=== PATIENT | male | born 1960 | race Caucasian/White ===

== ENCOUNTER 2018-03-10 12:20 | Observation (INO) | payer OTHER ==
[2018-03-10 13:12] LABS: Absolute Lymphocytes (CBC) 1.5 K/uL (0.7-4.9); Absolute Monocytes 0.6 K/uL (0.1-1.3); Absolute Neutrophil 5.2 K/uL (1.8-8.0); Basophils % 0.6 % (0-1.3); Eosinophils % 0.7 % (0-4.4); Hematocrit 51.3 % (39.6-49.0); Lymphocytes % 20.8 % (15.3-44.8); MCH 28.9 pg (27.0-35.0); MCV 85.8 fL (80-100); MPV 9.8 fL (7.6-11.3); Monocytes % 8.1 % (3.3-12.3); RBC Red Blood Cell Count 5.98 M/uL (4.33-5.43)
[2018-03-10] MEDS ORDERED: METOPROLOL TARTRATE 5 MG/5 ML INJ IV ONE ×2 (13:15→13:29)
[2018-03-10] MEDS ORDERED: ASPIRIN 81 MG CHEWABLE TABLET ONE (13:15)
[2018-03-10 13:21] LABS: Protime INR 1.05
[2018-03-10 13:36] LABS: ALT/SGPT 22 U/L (12-78); AST/SGOT 18 U/L (15-37); Alkaline Phosphatase 82 U/L (45-117); BUN Blood Urea Nitrogen 18 mg/dL (7-18); Bicarbonate 29 mmol/L (21-32); Bilirubin Direct 0.2 mg/dL (0-0.2); Bilirubin Total 0.9 mg/dL (0.2-1.0); CKMB Creatine Kinase MB < 1.0 ng/mL (0.3-3.6); Creatine Phosphokinase 57 U/L (39-308); Glucose Level 95 mg/dL (74-106); Magnesium 2.1 mg/dL (1.8-2.4); NT PRO-BNP 62 pg/mL (<125); Potassium 3.8 mmol/L (3.5-5.1); Protein, Total 7.8 g/dL (6.4-8.2); Sodium Level 140 mmol/L (136-145); Troponin (Emerg Dept Use Only) < 0.02 ng/mL (0.0-0.045)
--- NOTE | 2018-03-10 14:10 | RAD REPORT ---
EXAM DESCRIPTION: CT - Head Brain Wo Cont - 03/10/2018 1:56 pm CLINICAL HISTORY: Dizziness COMPARISON: None. TECHNIQUE: Computed axial tomography of the head was obtained. IV contrast was not requested. All CT scans are performed using dose optimization technique as appropriate and may include automated exposure control or mA/KV adjustment according to patient size. FINDINGS: An intracranial bleed is not seen . The ventricles are normal in caliber. No extra-axial fluid collection is noted. Fluid within the sinuses/ mastoids is not seen. IMPRESSION: No acute intracranial abnormality is seen. If patient's symptoms persist MRI of the bra in would be recommended.
--- NOTE | 2018-03-10 14:24 | RAD REPORT ---
EXAM DESCRIPTION: Flory Single View03/10/2018 1:26 pm CLINICAL HISTORY: Chest pain COMPARISON: none FINDINGS: The lungs appear clear of acute infiltrate. The heart is mildly enlarged. The aorta is to rtuous/ectatic IMPRESSION: No acute abnormalities displayed
[2018-03-10] MEDS ORDERED: cloNIDine HCl 0.1 MG TAB ONE (14:32)
[2018-03-10 15:18] LABS: Urine Blood NEGATIVE (NEG); Urine Glucose NEGATIVE (NEG); Urine Protein NEGATIVE (NEG); Urine pH 6.5 (5.0-7.0)
--- NOTE | 2018-03-10 15:35 | EDPHYS ---
Physician Documentation [facility] Name: Yoshi Mcadams Age: 57 yrs Sex: Male : 1960 Arrival Date: 03/10/2018 Time: 12:27 Bed 15 Private MD: ED Physician Salvatore Joseph HPI: 03/10 13:27 This 57 yrs old Male presents to ER via EMS with complaints of High Blood Pressure. kb 13:28 The patient presents with dizziness, feeling "weird". Onset: The symptoms/episode kb began/occurred just prior to arrival. Context: occurred at work, occurred while the patient was working, just prior to the episode the patient experienced no apparent symptoms. Modifying factors: The symptoms are alleviated by nothing, the symptoms are aggravated by nothing. Associated signs and symptoms: The patient has no apparent associated signs or symptoms. Severity of symptoms: At their worst the symptoms were moderate in the emergency department the symptoms are unchanged. Patient's baseline: Neuro: alert and fully oriented, Motor: no deficits, Ambulation: walks without assistance, Speech: normal. The patient has not experienced similar symptoms in the past. The patient has not recently seen a physician. Historical: - Allergies: 12:31 No Known Allergies; em - PMHx: 12:31 Hypertension; em - PSHx: 12:31 Hernia repair; Tonsillectomy; em - Immunization history:: Adult Immunizations up to date. - Social history:: Smoking status: Patient/guardian denies using tobacco. - Ebola Screening: : Patient negative for fever greater than or equal to 101.5 degrees Fahrenheit, and additional compatible Ebola Virus Disease symptoms Patient denies exposure to infectious person Patient denies travel to an Ebola-affected area in the 21 days before illness onset No symptoms or risks identified at this time. ROS: 13:28 Constitutional: Negative for fever, chills, and weight loss, Cardiovascular: Negative kb for chest pain, palpitations, and edema, Respiratory: Negative for shortness of breath, cough, wheezing, and pleuritic chest pain, Abdomen/GI: Negative for abdominal pain, nausea, vomiting, diarrhea, and constipation, Back: Negative for injury and pain, : Negative for injury, bleeding, discharge, and swelling, MS/Extremity: Negative for injury and deformity, Skin: Negative for injury, rash, and discoloration. 13:28 Neuro: Positive for "I just felt weird, not quite right.". Exam: 13:28 Constitutional: This is a well developed, well nourished patient who is awake, alert, kb and in no acute distress. Head/Face: Normocephalic, atraumatic. Eyes: Pupils equal round and reactive to light, extra-ocular motions intact. Lids and lashes normal. Conjunctiva and sclera are non-icteric and not injected. Cornea within normal limits. Periorbital areas with no swelling, redness, or edema. ENT: Nares patent. No nasal discharge, no septal abnormalities noted. Tympanic membranes are normal and external auditory canals are clear. Oropharynx with no redness, swelling, or masses, exudates, or evidence of obstruction, uvula midline. Mucous membranes moist. Neck: Trachea midline, no thyromegaly or masses palpated, and no cervical lymphadenopathy. Supple, full range of motion without nuchal rigidity, or vertebral point tenderness. No Meningismus. Chest/axilla: Normal chest wall appearance and motion. Nontender with no deformity. No lesions are appreciated. Cardiovascular: Regular rate and rhythm with a normal S1 and S2. No gallops, murmurs, or rubs. Normal PMI, no JVD. No pulse deficits. Respiratory: Lungs have equal breath sounds bilaterally, clear to auscultation and percussion. No rales, rhonchi or wheezes noted. No increased work of breathing, no retractions or nasal flaring. Abdomen/GI: Soft, non-tender, with normal bowel sounds. No distension or tympany. No guarding or rebound. No evidence of tenderness throughout. Back: No spinal tenderness. No costovertebral tenderness. Full range of motion. Skin: Warm, dry with normal turgor. Normal color with no rashes, no lesions, and no evidence of cellulitis. MS/ Extremity: Pulses equal, no cyanosis. Neurovascular intact. Full, normal range of motion. Neuro: Awake and alert, GCS 15, oriented to person, place, time, and situation. Cranial nerves II-XII grossly intact. Motor strength 5/5 in all extremities. Sensory grossly intact. Cerebellar exam normal. Normal gait. Vital Signs: 12:31 BP 152 / 121; Pulse 93; Resp 18; Pulse Ox 98% on R/A; Weight 88.45 kg; Height 5 ft. 9 em in. (175.26 cm); Pain 0/10; 13:10 BP 172 / 120 RA (man/); Pulse 100; iw 13:21 BP 168 / 111; Pulse 79; Resp 16; iw 13:33 BP 157 / 116; Pulse 71; iw 14:15 BP 166 / 115; Pulse 79; Resp 18; Pulse Ox 99% on R/A; Pain 0/10; em 15:00 BP 178 / 107; Pulse 82; Resp 18; Temp 98.8(O); Pulse Ox 98% on R/A; Pain 0/10; em 15:51 BP 139 / 104; Pulse 87; Resp 18; Pulse Ox 98% on R/A; Pain 0/10; em 17:27 BP 122 / 89; Pulse 75; Resp 16; Pulse Ox 99% on R/A; Pain 0/10; em 12:31 Body Mass Index 28.80 (88.45 kg, 175.26 cm) em MDM: 12:43 Patient medically screened. kb 13:28 Data reviewed: vital signs, nurses notes. Data interpreted: Pulse oximetry: on room air kb is 98 %. Interpretation: normal. 15:31 Counseling: I had a detailed discussion with the patient and/or guardian regarding: the kb historical points, exam findings, and any diagnostic results supporting the discharge/admit diagnosis, lab results, radiology results, the need for further work-up and treatment in the hospital. Physician consultation: Rosa Guerra MD was contacted at 15:32, regarding admission, to the telemetry unit. patient's condition, and will see patient in ED, shortly. 03/10 12:43 Order name: Basic Metabolic Panel; Complete Time: 13:37 kb 03/10 12:43 Order name: CBC with Diff; Complete Time: 13:22 kb 03/10 12:43 Order name: Ckmb; Complete Time: 13:37 kb 03/10 12:43 Order name: CPK; Complete Time: 13:37 kb 03/10 12:43 Order name: LFT's; Complete Time: 13:37 kb 03/10 12:43 Order name: Magnesium; Complete Time: 13:37 kb 03/10 12:43 Order name: NT PRO-BNP; Complete Time: 13:37 kb 03/10 12:43 Order name: PT-INR; Complete Time: 13:26 kb 03/10 12:43 Order name: Ptt, Activated; Complete Time: 13:26 kb 03/10 12:43 Order name: Troponin (emerg Dept Use Only); Complete Time: 13:37 kb 03/10 12:43 Order name: XRAY Chest (1 view); Complete Time: 14:25 kb 03/10 13:37 Order name: CT Head Brain wo Cont; Complete Time: 14:12 kb 03/10 14:43 Order name: Urine Dipstick--Ancillary (enter results); Complete Time: 15:25 em1 03/10 15:27 Order name: MRI Stroke Protocol kb 03/10 12:43 Order name: EKG; Complete Time: 12:44 kb 03/10 12:43 Order name: Cardiac monitoring; Complete Time: 12:54 kb 03/10 12:43 Order name: EKG - Nurse/Tech; Complete Time: 12:54 kb 03/10 12:43 Order name: IV Saline Lock; Complete Time: 12:54 kb 03/10 12:43 Order name: Labs collected and sent; Complete Time: 12:54 kb 03/10 12:43 Order name: O2 Per Protocol; Complete Time: 12:54 kb 03/10 12:43 Order name: O2 Sat Monitoring; Complete Time: 12:55 kb 03/10 12:43 Order name: Urine Dipstick-Ancillary (obtain specimen); Complete Time: 14:36 kb 03/10 15:39 Order name: EEG Request EDMS Administered Medications: 13:15 Drug: Lopressor 5 mg Route: IVP; Site: left antecubital; iw 13:20 Drug: Aspirin Chewable Tablet 324 mg Route: PO; iw 14:45 Follow up: Response: No adverse reaction em 13:27 Drug: Lopressor 5 mg Route: IVP; Site: left antecubital; iw 13:32 Drug: Lopressor 5 mg Route: IVP; Site: left antecubital; iw 14:45 Follow up: Response: No adverse reaction; Blood pressure is unchanged em 14:40 Drug: cloNIDine 0.2 mg Route: PO; em 15:58 Follow up: Response: No adverse reaction; Blood pressure is lowered em 16:22 Drug: Ativan 1 mg Route: IVP; Site: left antecubital; fc 17:27 Follow up: Response: No adverse reaction; Marked relief of symptoms em Disposition: 18:18 Co-signature as Attending Physician, Salvatore Joseph MD I agree with the assessment and kdr plan of care. Disposition: 03/10/18 15:35 Hospitalization ordered by Rosa Guerra for Observation. Preliminary diagnosis are Dizziness and giddiness, Essential (primary) hypertension. - Bed requested for Telemetry/MedSurg (observation). - Status is Observation. em - Condition is Stable. - Problem is new. - Symptoms are unchanged. UTI on Admission? No Signatures: Dispatcher [employer] EDMS Addie Manuel, TIER IN-C TIER IN-Salvatore Bryant MD MD kdr Linda Lehman, RN RN fc Ramírez Lowry, DESK ASSISTANT DESK ASSISTANT em Michelle Nuñez RN RN iw Botello, Elizabeth eb Corrections: (The following items were deleted from the chart) 16:03 15:35 Hospitalization Ordered by Rosa Guerra MD for Observation. Preliminary eb diagnosis is Dizziness and giddiness; Essential (primary) hypertension. Bed requested for Telemetry/MedSurg (observation). Status is Observation. Condition is Stable. Problem is new. Symptoms are unchanged. UTI on Admission? No. kb 16:21 16:03 03/10/2018 15:35 Hospitalization Ordered by Rosa Guerra MD for Observation. eb Preliminary diagnosis is Dizziness and giddiness; Essential (primary) hypertension. Bed requested for Telemetry/MedSurg (observation). Status is Observation. Condition is Stable. Problem is new. Symptoms are unchanged. UTI on Admission? No. eb 17:30 16:21 03/10/2018 15:35 Hospitalization Ordered by Rosa Guerra MD for Observation. em Preliminary diagnosis is Dizziness and giddiness; Essential (primary) hypertension. Bed requested for Telemetry/MedSurg (observation). Status is Observation. Condition is Stable. Problem is new. Symptoms are unchanged. UTI on Admission? No. eb
--- NOTE | 2018-03-10 15:35 | ER ---
Nurse's Notes [facility] Name: Yoshi Mcadams Age: 57 yrs Sex: Male : 1960 Arrival Date: 03/10/2018 Time: 12:27 Bed 15 Private MD: Diagnosis: Dizziness and giddiness;Essential (primary) hypertension Presentation: 03/10 12:27 Presenting complaint: EMS states: c/o for HTN, pt did not take medication this morning em and became hot/cold and broke into sweat, denies CP, nausea, dizziness, or pain. BP per EMS 160/120s, HR 100-105. Transition of care: patient was not received from another setting of care. Onset of symptoms was March 10, 2018. Risk Assessment: Do you want to hurt yourself or someone else? Patient reports no desire to harm self or others. Initial Sepsis Screen: Does the patient meet any 2 criteria? No. Patient's initial sepsis screen is negative. Does the patient have a suspected source of infection? No. Patient's initial sepsis screen is negative. Care prior to arrival: None. 12:27 Method Of Arrival: EMS: [facility] em 12:30 Acuity: ARNAV 3 iw Triage Assessment: 12:31 General: Appears in no apparent distress. comfortable, Behavior is calm, cooperative. em Pain: Denies pain. Historical: - Allergies: 12:31 No Known Allergies; em - PMHx: 12:31 Hypertension; em - PSHx: 12:31 Hernia repair; Tonsillectomy; em - Immunization history:: Adult Immunizations up to date. - Social history:: Smoking status: Patient/guardian denies using tobacco. - Ebola Screening: : Patient negative for fever greater than or equal to 101.5 degrees Fahrenheit, and additional compatible Ebola Virus Disease symptoms Patient denies exposure to infectious person Patient denies travel to an Ebola-affected area in the 21 days before illness onset No symptoms or risks identified at this time. Screenin:32 Abuse screen: Denies threats or abuse. Nutritional screening: No deficits noted. em Tuberculosis screening: No symptoms or risk factors identified. Fall Risk None identified. Assessment: 12:31 General: Appears in no apparent distress. comfortable, Behavior is calm, cooperative. iw Pain: Denies pain. Neuro: Level of Consciousness is awake, alert, obeys commands, Oriented to person, place, time, situation, Intervention Specialist are equal bilaterally Moves all extremities. Speech is normal, Reports dizziness. Cardiovascular: Denies chest pain, fatigue, palpitations, shortness of breath, Capillary refill < 3 seconds Patient's skin is warm and dry. Respiratory: Airway is patent Respiratory effort is even, unlabored. GI: Abdomen is flat, Patient currently denies nausea, vomiting. : No signs and/or symptoms were reported regarding the genitourinary system. EENT: No signs and/or symptoms were reported regarding the EENT system. Derm: Skin is intact, Skin is pink, warm \\T\\ dry. Musculoskeletal: Range of motion: intact in all extremities. 13:21 Reassessment: Patient appears in no apparent distress at this time. Patient and/or iw family updated on plan of care and expected duration. Pain level reassessed. Patient is alert, oriented x 3, equal unlabored respirations, skin warm/dry/pink. 14:23 Reassessment: Patient appears in no apparent distress at this time. Patient and/or em family updated on plan of care and expected duration. Pain level reassessed. Patient is alert, oriented x 3, equal unlabored respirations, skin warm/dry/pink. reports tingling and feels like bugs crawling on pt, denies chest pain, SOB, headache, double vision, provider notified. 15:07 Reassessment: Patient appears in no apparent distress at this time. Patient and/or em family updated on plan of care and expected duration. Pain level reassessed. Patient is alert, oriented x 3, equal unlabored respirations, skin warm/dry/pink. pt son reports episodes of talking fine one moment and then "spacing out", son reports this is not normal for pt, provider notified, MRI will be ordered. 15:55 Reassessment: pt wheeled to MRI via wheelchair. em 16:15 Reassessment: Pt very anxious about MRI. Discussed with Addie PAYAN and pt to get Ativan fc IVP. 17:20 Reassessment: Patient appears in no apparent distress at this time. Patient and/or em family updated on plan of care and expected duration. Pain level reassessed. Patient is alert, oriented x 3, equal unlabored respirations, skin warm/dry/pink. returned from MRI, pt will be transfer to the floor Patient states feeling better. Vital Signs: 12:31 BP 152 / 121; Pulse 93; Resp 18; Pulse Ox 98% on R/A; Weight 88.45 kg; Height 5 ft. 9 em in. (175.26 cm); Pain 0/10; 13:10 BP 172 / 120 RA (man/); Pulse 100; iw 13:21 BP 168 / 111; Pulse 79; Resp 16; iw 13:33 BP 157 / 116; Pulse 71; iw 14:15 BP 166 / 115; Pulse 79; Resp 18; Pulse Ox 99% on R/A; Pain 0/10; em 15:00 BP 178 / 107; Pulse 82; Resp 18; Temp 98.8(O); Pulse Ox 98% on R/A; Pain 0/10; em 15:51 BP 139 / 104; Pulse 87; Resp 18; Pulse Ox 98% on R/A; Pain 0/10; em 17:27 BP 122 / 89; Pulse 75; Resp 16; Pulse Ox 99% on R/A; Pain 0/10; em 12:31 Body Mass Index 28.80 (88.45 kg, 175.26 cm) em ED Course: 12:27 Patient arrived in ED. em 12:31 Arm band placed on. em 12:32 Patient has correct armband on for positive identification. Placed in gown. Bed in low em position. Call light in reach. Adult w/ patient. 12:32 Maintain EMS IV. Dressing intact. Good blood return noted. Site clean \\T\\ dry. Gauge \\T\\ em site: 20 LAC. 12:40 Triage completed. iw 12:42 EKG done, by tree and shrub technician. dt2 12:43 Addie Manuel FNP-C is PHCP. kb 12:43 Salvatore Joseph MD is Attending Physician. kb 12:50 Ramírez Lowry LVN is Primary Nurse. em 13:25 X-ray completed. Portable x-ray completed in exam room. Patient tolerated procedure mh1 well. 13:27 XRAY Chest (1 view) In Process Unspecified. EDMS 13:[address] mw3 13:56 CT Head Brain wo Cont In Process Unspecified. EDMS 15:34 Rosa Guerra MD is Hospitalizing Provider. kb 16:01 Patient moved to MRI via wheelchair. ka 17:13 MRI completed. Patient tolerated well. Patient moved back from MRI. ka 17:25 No provider procedures requiring assistance completed. Patient admitted, IV remains in em place. Administered Medications: 13:15 Drug: Lopressor 5 mg Route: IVP; Site: left antecubital; iw 13:20 Drug: Aspirin Chewable Tablet 324 mg Route: PO; iw 14:45 Follow up: Response: No adverse reaction em 13:27 Drug: Lopressor 5 mg Route: IVP; Site: left antecubital; iw 13:32 Drug: Lopressor 5 mg Route: IVP; Site: left antecubital; iw 14:45 Follow up: Response: No adverse reaction; Blood pressure is unchanged em 14:40 Drug: cloNIDine 0.2 mg Route: PO; em 15:58 Follow up: Response: No adverse reaction; Blood pressure is lowered em 16:22 Drug: Ativan 1 mg Route: IVP; Site: left antecubital; 17:27 Follow up: Response: No adverse reaction; Marked relief of symptoms em Outcome: 15:35 Decision to Hospitalize by Provider. kb 17:25 Admitted to Tele accompanied by tech, family with patient, via wheelchair, room 409, em with chart, Report called to STACY Gibbons 17:25 Condition: good 17:25 Instructed on the need for admit, Demonstrated understanding of instructions. 17:30 Patient left the ED. em Signatures: Dispatcher [employer] Addie Jamison, NURSING ADMIN-C NURSING ADMIN-Ckb Karolina Saez 1 Linda Lehman RN RN Ramírez Lowry, EMBROIDERY PATTERNMAKER EMBROIDERY PATTERNMAKER em Michelle Nuñez RN RN Mary Newell Danielle 2 Jillian Grant mw3
[2018-03-10] MEDS ORDERED: LORazepam 2 MG/ML VIAL ONE (16:20)
--- NOTE | 2018-03-10 17:37 | P.HP ---
Certification for Inpatient Patient admitted to: Observation With expected LOS: <2 Midnights Patient will require the following post-hospital care: None Practitioner: I am a practitioner with admitting privileges, knowledge of patient current condition, hospital course, and medical plan of care. Services: Services provided to patient in accordance with Admission requirements found in Title 42 Section 412.3 of the Code of Federal Regulations Patient History Date of Service: 03/10/18 Primary Care Provider: OOT Reason for admission: HTN urgency History of Present Illness: 57-year-old male with significant past medical history of high blood pressure presented to the ED complaining of having some dizziness that started this morning when he was at work. Patient stated that he became dizzy all of a sudden started having some fatigue and thus decided to come to the ER. Patient had similar episodes about 6 weeks ago per family member at bedside stated that he had dizziness also at that time but he thought he was his kidney stones and did resolve thus he did not come to the ER at that time. Patient at baseline does have high blood pressure, takes medications at home however has noticed that his blood pressure has been elevated recently he had has been stress a lot at work recently as well he works as a business development recruiter at a firm In the ER patient was found to have hypertensive urgency and dizziness and thus was referred over to admission and rule out CVA. Home medications list reviewed: Yes - Past Medical/Surgical History Has patient received pneumonia vaccine in the past: Yes Diabetic: No -: HTN Past Surgical History: Reviewed- Non-Contributory - Family History Family History: Reviewed- Non-Contributory - Social History Smoking Status: Never smoker Smoking therapy provided: No Patient receptive to therapy: No Alcohol use: No CD- Drugs: No Caffeine use: No Place of Residence: Home Review of Systems 10-point ROS is otherwise unremarkable Physical Examination - Physical Exam General: Alert, In no apparent distress HEENT: Atraumatic, PERRLA, Mucous membr. moist/pink, EOMI, Sclerae nonicteric Neck: Supple, 2+ carotid pulse no bruit, No LAD, Without JVD or thyroid abnormality Respiratory: Clear to auscultation bilaterally, Normal air movement Cardiovascular: Regular rate/rhythm, Normal S1 S2 Gastrointestinal: Normal bowel sounds, No tenderness Musculoskeletal: No tenderness Integumentary: No rashes Neurological: Normal gait, Normal speech, Normal strength at 5/5 x4 extr, Normal tone, Normal affect Lymphatics: No axilla or inguinal lymphadenopathy - Studies Laboratory Data (last 24 hrs) 03/10/18 13:00: PT 12.4, INR 1.05, APTT 30.3 03/10/18 13:00: WBC 7.4, Hgb 17.3, Hct 51.3 H, Plt Count 221 03/10/18 13:00: Sodium 140, Potassium 3.8, BUN 18, Creatinine 1.30, Glucose 95, Magnesium 2.1, Total Bilirubin 0.9, AST 18, ALT 22, Alkaline Phosphatase 82 Assessment and Plan - Problems (Diagnosis) (1) Hypertensive urgency Current Visit: Yes Status: Acute Plan: HTN urgency with Dizziness and Blurred vision -PRN meds for BP -Will restart home medication -Goal BP 160-90 -BP now is 120/80 (2) Dizziness Current Visit: Yes Status: Acute Plan: Dizziness and blurred vision -Concern for CVA -MRI/MRA pending at this time Discharge Plan: Home Plan to discharge in: 48 Hours - Advance Directives Does patient have a Living Will: No Does patient have a Durable POA for Healthcare: No - Code Status/Comfort Care Code Status Assessed: Yes Critical Care: No
[2018-03-10] MEDS ORDERED: ONDANSETRON 4 MG/2 ML VIAL IV PRN (17:39)
[2018-03-10] MEDS ORDERED: INSULIN -REGULAR HUMAN 50 UNIT/0.5 ML ML SQ SCH (17:39)
[2018-03-10] MEDS: NA CHLORIDE 0.9% 1,000 ML IV SCH ×2 (17:39→20:29)
[2018-03-10] MEDS ORDERED: ACETAMINOPHEN 500 MG TAB PO PRN (17:39)
--- NOTE | 2018-03-10 18:44 | RAD REPORT ---
EXAM DESCRIPTION: MRI - Brain W/Wo Cont - 03/10/2018 5:14 pm CLINICAL HISTORY: Hypertension, dizziness, weakness COMPARISON: None. TECHNIQUE: Sagittal and axial T1-weighted images were obtained. Axial PD/heavily T2-weighted and T2- FLAIR images were obtained along with axial DWI/ADC mapping sequences. Coronal heavily T2 weighted s equence obtained. Axial and coronal post-contrast T1-weighted images were also obtained. A ml Magne vist contrast following utilized. FINDINGS: No intracranial hemorrhage, mass or acute infarction. There is no edema or shift of midli ne structures. No extra-axial fluid collections. [place]-matter/white matter junction is preserved. Sig nal voids are seen as a normal finding in the major intracranial vessels. No atrophy or chronic ische romelia changes seen. No vasculitis or other suspicious finding. No sella or supra sella abnormality. Post-contrast images show normal enhancement. No dural thickening. Mastoid air cells and paranasal sinuses are clear. IMPRESSION: Negative contrast enhanced MRI of the Brain.
--- NOTE | 2018-03-10 18:44 | RAD REPORT ---
EXAM DESCRIPTION: MRI - MRA Head Wo Cont - 03/10/2018 5:13 pm CLINICAL HISTORY: Weakness, dizziness, stroke-like symptoms COMPARISON: None. TECHNIQUE: Axial and coronal 3D [id number] image acquisition was performed. 3D rotational images were generated with source and reconstruction images reviewed. Maximum intensity projection protocol utilized. FINDINGS: Major venous sinuses are patent. Venous sinus thrombosis is not suspected. No aneurysm or vascular malformation. No stenosis or measurable atherosclerotic change. No vasculitis or other focal or diffuse vascular finding. IMPRESSION: Negative MRA head examination.
--- NOTE | 2018-03-10 18:44 | RAD REPORT ---
EXAM DESCRIPTION: MRI - MRA Neck W/Wo Cont - 03/10/2018 5:14 pm CLINICAL HISTORY: Dizziness, weakness, hypertension, stroke-like symptoms COMPARISON: None. TECHNIQUE: Image acquisition obtained in coronal plane. 3D rotational images were generated with juana rce and reconstruction images reviewed. Maximum intensity projection protocol utilized. A 20 millilit er MultiHance contrast volume was utilized. FINDINGS: Aortic arch is 3 vessel configuration. The great vessel and vertebral artery origins are u nremarkable. No dissection, stenosis or other vascular abnormality. No vascular malformation or aneur ysm. Vertebral arteries are codominant. IMPRESSION: Negative contrast enhanced MRA neck examination.
[2018-03-10] MEDS ORDERED: ATORVASTATIN 40 MG TAB PO SCH (21:00)
[2018-03-11 05:48] LABS: Absolute Lymphocytes (CBC) 1.6 K/uL (0.7-4.9); Absolute Monocytes 0.6 K/uL (0.1-1.3); Absolute Neutrophil 3.6 K/uL (1.8-8.0); Basophils % 0.8 % (0-1.3); Eosinophils % 1.1 % (0-4.4); Hematocrit 44.6 % (39.6-49.0); Lymphocytes % 27.4 % (15.3-44.8); MCH 29.3 pg (27.0-35.0); Monocytes % 9.6 % (3.3-12.3); RBC Red Blood Cell Count 5.19 M/uL (4.33-5.43)
[2018-03-11 06:01] LABS: Albumin 3.1 g/dL (3.4-5.0); Bilirubin Total 0.5 mg/dL (0.2-1.0); Magnesium 2.1 mg/dL (1.8-2.4); Phosphorus 2.8 mg/dL (2.5-4.9); Potassium 3.8 mmol/L (3.5-5.1); Protein, Total 6.3 g/dL (6.4-8.2)
[2018-03-11] MEDS ORDERED: ASPIRIN 81 MG CHEWABLE TABLET PO SCH (09:00)
[2018-03-11] MEDS ORDERED: LOSARTAN POTASSIUM 50 MG TABLET PO SCH (09:00)
--- NOTE | 2018-03-11 09:50 | EKG ---
Test Date: 2018-03-10 Test Time: 12:37:13 Senior Laboratory Technician: ISAAK MEASUREMENT RESULTS: Intervals: Rate: 88 [place]: 166 QRSD: 94 QT: 344 QTc: 416 [place]: P: 41 [place]: 166 QRS: -1 T: 35 INTERPRETIVE STATEMENTS: Normal sinus rhythm with sinus arrhythmia Possible Left atrial enlargement Anterior infarct, age undetermined Abnormal ECG No previous ECG available for comparison Electronically Signed On 03-11-18 02:14:45 CDT by Antwon Aleman
--- NOTE | 2018-03-11 13:38 | P.DS ---
Admission Date: 03/10/18 Discharge Date: 03/11/18 Primary Care Provider: OOT Discharge Condition: FAIR Reason for Admission: HTN urgency - Problems (1) Hypertensive urgency Current Visit: Yes Status: Acute Brief History of Present Illness: 57-year-old male with significant past medical history of high blood pressure presented to the ED complaining of having some dizziness that started this morning when he was at work. Patient stated that he became dizzy all of a sudden started having some fatigue and thus decided to come to the ER. Patient had similar episodes about 6 weeks ago per family member at bedside stated that he had dizziness also at that time but he thought he was his kidney stones and did resolve thus he did not come to the ER at that time. Patient at baseline does have high blood pressure, takes medications at home however has noticed that his blood pressure has been elevated recently he had has been stress a lot at work recently as well he works as a agency recruiter at a firm In the ER patient was found to have hypertensive urgency and dizziness and thus was referred over to admission and rule out CVA. Hospital Course: He was admitted for unctronlled hypertension. We restarted and later increased his dose of Losartan with good blood pressure control. MRI brain was unremakable. He is much better. He is discharged home on Losartan 100mg daily. Vital Signs/Physical Exam: Temp Pulse Resp BP Pulse Ox 98.6 F 78 18 141/94 H 95 03/11/18 12:00 03/11/18 12:00 03/11/18 12:00 03/11/18 12:00 03/11/18 12:00 General: Alert, In no apparent distress HEENT: Atraumatic, PERRLA, EOMI Neck: Supple, JVD not distended Respiratory: Clear to auscultation bilaterally, Normal air movement Cardiovascular: Regular rate/rhythm, Normal S1 S2 Gastrointestinal: Normal bowel sounds, No tenderness Musculoskeletal: No tenderness Integumentary: No rashes Neurological: Normal speech, Normal tone, Normal affect Lymphatics: No axilla or inguinal lymphadenopathy Laboratory Data at Discharge: WBC 5.9 K/uL (4.3-10.9) D 03/11/18 04:51 Hgb 15.2 g/dL (13.6-17.9) 03/11/18 04:51 Hct 44.6 % (39.6-49.0) 03/11/18 04:51 Plt Count 181 K/uL (152-406) 03/11/18 04:51 PT 12.4 SECONDS (9.5-12.5) 03/10/18 13:00 INR 1.05 03/10/18 13:00 APTT 30.3 SECONDS (24.3-36.9) 03/10/18 13:00 Sodium 142 mmol/L (136-145) 03/11/18 04:51 Potassium 3.8 mmol/L (3.5-5.1) 03/11/18 04:51 BUN 20 mg/dL (7-18) H 03/11/18 04:51 Creatinine 1.20 mg/dL (0.55-1.3) 03/11/18 04:51 Glucose 87 mg/dL (74-106) 03/11/18 04:51 Phosphorus 2.8 mg/dL (2.5-4.9) 03/11/18 04:51 Magnesium 2.1 mg/dL (1.8-2.4) 03/11/18 04:51 Total Bilirubin 0.5 mg/dL (0.2-1.0) 03/11/18 04:51 AST 12 U/L (15-37) L 03/11/18 04:51 ALT 17 U/L (12-78) 03/11/18 04:51 Alkaline Phosphatase 67 U/L (45-117) 03/11/18 04:51 Home Medications: Losartan Potassium [Cozaar*] 100 mg PO DAILY #60 tablet 03/11/18 New Medications: Losartan Potassium [Cozaar*] 100 mg PO DAILY #60 tablet Diet: Regular Activity: Ad jemal Time spent managing pt's care (in minutes): 15
[2018-03-11] MEDS ORDERED: ENOXAPARIN 40 MG/0.4 ML SQ SCH (17:00)
[2018-03-12] MEDS ORDERED: LOSARTAN POTASSIUM 50 MG TABLET PO SCH (09:00)
== END 2018-03-11 13:39 | disposition home or self-care (01) ==
LOC: ER 12:20 → INTOOBSV 15:35 → ERHOLD 15:35 → 4TH 17:03
PROVIDERS: ADMIT Family Medicine; ATTEND Internal Medicine Hematology & Oncology
DX: I16.0 Hypertensive urgency (principal); I10 Essential (primary) hypertension; R42 Dizziness and giddiness; R53.1 Weakness
CPT/HCPCS: 36415; 70450; 70544; 70549; 70553; 71045; 80048; 80053; 80076; 81003; 82550; 82553; 83735; 83880; 84100; 84443; 84484; 85025; 85610; 85730; 93005; 96374; 96375; 97163; 99285; A9577; G0378; J7030